=== PATIENT | female | born 1955 | race African-American/Black ===

== ENCOUNTER 2016-10-23 15:25 | Emergency (ER) | payer OTHER ==
[~2016-10-23] VITALS: Ht 170.2 cm; Wt 77.0 kg
[2016-10-23] MEDS ORDERED: SODIUM CHLORIDE 0.9% 1,000 ML IV ONE (15:56)
[2016-10-23] MEDS ORDERED: ONDANSETRON HCL 4MG/2ML VIAL IV STA (15:56)
[2016-10-23] MEDS ORDERED: KETOROLAC 30MG/ML VIAL IV STA (15:56)
[2016-10-23 16:32] LABS: HEMATOCRIT. 41.2 % (36.0-48.0); MEAN CORPUSCULAR HEMOGLOBIN 22.8 pg (28.0-32.0); MEAN CORPUSCULAR HGB CONC 31.6 g/dL (31.0-37.0); MEAN CORPUSCULAR VOLUME 72.2 fL (81.0-99.0); MEAN PLATELET VOLUME 8.5 fl (7.4-10.4); PLATELET 161 x1000/uL (130-400); RED CELL DISTRIBUTION WIDTH 14.1 % (11.6-14.6)
[2016-10-23 16:34] LABS: CHLORIDE 105 mEq/L (98-107); INR 1.1
[2016-10-23 16:35] LABS: DIFFERENTIAL COMMENT 1
[2016-10-23 16:39] LABS: ALANINE AMINOTRANSFERASE 29 IU/L (13-61); ALBUMIN 3.3 g/dL (3.4-5.0); ANION GAP 11; CALCIUM 8.9 mg/dL (8.5-10.1); CARBON DIOXIDE 31 mEq/L (21-32); INDEX HEMOLYSI 1 (1-3); INDEX ICTERIC 1 (1-4); INDEX LIPEMIC 1 (1-3); LIPASE 114 IU/L (73-393); eGFR > 60 mL/min (>60)
[2016-10-23 16:42] LABS: UREA NITROGEN BLOOD 4 mg/dL (7-21)
[2016-10-23 17:06] LABS: ATYPICAL LYMPHOCYTES 1; PLATELET ESTIMATE NORMAL
[2016-10-23 17:09] LABS: HYPOCHROMASIA 1+
[2016-10-23] MEDS ORDERED: ONDANSETRON 4MG ODT PO ONE (17:45)
[2016-10-23] MEDS ORDERED: METOCLOPRAMIDE HCL 10MG TABLET PO ONE (19:00)
[2016-10-23] MEDS ORDERED: MORPHINE SULFATE 10 MG/ML CPJ IM ONE ×2 (19:00→21:30)
[2016-10-23 21:34] LABS: CLARITY URINE CLEAR (CLEAR); COLOR URINE YELLOW (YELLOW); GLUCOSE URINE NEGATIVE (NEGATIVE); KETONES URINE NEGATIVE (NEGATIVE); LEUKOCYTE ESTERASE URINE NEGATIVE (NEGATIVE); NITRITE URINE NEGATIVE (NEGATIVE); OCCULT BLOOD URINE NEGATIVE (NEGATIVE); PROTEIN URINE NEGATIVE (NEGATIVE); SPECIFIC GRAVITY URINE 1.012 (1.005-1.030)
[2016-10-24] MEDS ORDERED: SODIUM CHLORIDE 0.9% 1,000 ML IV ONE ×2 (00:15→01:30)
[2016-10-24] MEDS ORDERED: ONDANSETRON HCL 4MG/2ML VIAL IV ONE (00:15)
[2016-10-24] MEDS ORDERED: MORPHINE SULFATE 4 MG/ML CPJ (NOT FOR IM USE) IV ONE (00:15)
[2016-10-24 04:00] VITALS: BP 165/86
== END 2016-10-24 04:06 | disposition home or self-care (01) ==
LOC: ER 15:26
DX: K80.20 Calculus of gallbladder without cholecystitis without obstruction (principal); I10 Essential (primary) hypertension; F17.210 Nicotine dependence, cigarettes, uncomplicated
CPT/HCPCS: 36415; 76705; 80053; 81003; 83690; 85025; 85610; 96361; 96372; 96374; 96375; 99285; C1893; J2270; J2405; J7030; Q0162; Z7610; J8597